=== PATIENT | female | born 1990 | race Caucasian/White ===

== ENCOUNTER 2021-04-18 20:41 | Inpatient (IN) ==
[2021-04-18] MEDS ORDERED: OXYTOCIN 30 UNITS/500 ML BAG IV PRN ×2 (21:28→21:30)
[2021-04-18] MEDS: LACTATED RINGER'S 1,000 ML IV PRN (21:46)
--- NOTE | 2021-04-18 21:47 | History & Physical Report ---
Date of Service April 18, 2021 Assessment & Plan (1) Spontaneous rupture of amniotic membranes: 30-year-old -0-1-1 at 39 weeks and 3 days of gestation presenting with spontaneous rupture of membranes, \Vital signs stable afebrile, heart rate reassuring, GBS negative, Tobacco, marijuana use during , accepts urine drug screening testing, Discussed induction of labor, cervical ripening with low-dose Pitocin versus expectant management. She desires oxytocin, Plan to admit, monitor, labs, IV fluids and oxytocin per protocol All questions were answered (2) Tobacco use during in third trimester: (3) Marijuana use: History of Present Illness Primary Care Provider: Miguelina Canales, DO A large gushIs a 30-year-old -0-1-1 at 39 weeks and 3 days of gestation who has been leaking clear amniotic fluid since 7 PM and it started as a big gush then continued as trickles. No vaginal bleeding, no contractions, no abdominal pain no cramping. Good movements. Patient denies fever, chills, chest pain, shortness of breath, headache or change in her vision, nausea or vomiting. Her has been complicated by 1) smoker, smokes 15 cigarettes/day, 2) marijuana use during , uses couple times a day, last use was yesterday, 3) polyhydramnios, 4) History of depression, anxiety Allergies Allergy/AdvReac Type Severity Reaction Status Date / Time No Known Allergies Allergy Unverified 09/08/18 00:50 Home Medications Medication Instructions Recorded Confirmed Type PNV cmb#95-ferrous fumarate-FA 1 tab PO DAILY 04/18/21 04/18/21 History [] ferrous sulfate [iron] 325 mg PO DAILY 04/18/21 04/18/21 History Patient History Medical History Adolescent depression suicide attempt at 12 Pyelonephritis Social History Smoking Status: Current every day smoker Cigarettes Per Day: 15; Second Hand Exposure: Yes; Hx Alcohol Use: No Hx Substance Use: Yes Last Used Substance: Days (ago) Last Used Substance Other:: 07/10/21 Preferred Language: Ukrainian Communication Ability: Effective Receiving 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 Beliefs That Will Affect Care: None marital status: Current Living Situation: Spouse and Family Other Information That Helps Us Care for You: No Feels Safe at Home: Yes Safety Concerns: Feels Safe At This Time Assistive Devices: None OB History Full-term in 2013 [employer] History Denies any history of STDs including chlamydia, gonorrhea, herpes Review of Systems All systems reviewed & are unremarkable except as noted in HPI & below Physical Exam Constitutional: WD/WN, vitals as above well developed and well nourished Patient is comfortable, not in acute distress Gastrointestinal (Abdomen): normal bowel sounds, soft, nontender, no hepatosplenomegaly (Gravid, Amandeep 7 to 8 pounds) Genitourinary: normal external appearance (Grossly ruptured, clear amniotic fluid noted, nitrazine positive) OB Exam Abdomen: + vertex Manual OB Exam: + cervical dilation 1 cm, + cervical effacement 10% and + station high (Ballotable head) OB Exam Monitor Tracing: + external uterine monitor used and + category I Results & Data ([facility]) Vital Signs (Past 12 Hours) Vital Signs Temp Pulse Resp BP 04/18/21 21:02 36.5 C 93 H 18 143/78 H 04/18/21 21:00 93 H 143/78 H
[2021-04-18 21:48] LABS: Hematocrit (blood only) 32.2 % (37-47); Hemoglobin 11.1 g/dL (12.0-16.0); Mean Corpuscular Hgb Conc 34.5 g/dL (32-36); Mean Corpuscular Volume 95.8 fL (80-100); Mean Platelet Volume 10.1 fL (7.4-10.4); Platelet Count 273 K/uL (130-400); RDW Coefficient of Variation 14.8 % (11.5-14.5); Red Blood Count 3.36 M/uL (4.2-5.4); White Blood Count 9.95 K/uL (4.8-10.8)
[2021-04-18 22:09] LABS: Albumin Level 2.7 gm/dl (3.4-5.0); BUN Creatinine Ratio 18.3 (10-20); Calcium 9.3 mg/dl (8.5-10.1); Creatinine Clr Calc Pharmacy 169.4 ml/min; Est GFR (African American) 146.6 ml/min; Est GFR (Non-African American) 126.5 ml/min; Potassium 3.7 mmol/L (3.5-5.1)
[2021-04-18 22:10] LABS: Amphetamines+Metham, Urine Neg (Neg); Barbiturates, Urine Neg (Neg); Benzodiazepine, Urine Neg (Neg); Cocaine, Urine Neg (Neg); MDMA (Ecstacy), Urine Neg (Neg); Methadone, Urine Neg (Neg); Opiate, Urine Neg (Neg); Phencyclidine, Urine Neg (Neg)
[2021-04-18 22:12] LABS: Albumin Globulin Ratio 0.6 (0.9-2); Bilirubin,Total 0.1 mg/dl (0.2-1); Globulin 4.2 gm/dl (2.5-4.0); Total Protein 6.9 gm/dl (6.4-8.2)
[2021-04-18] MEDS ORDERED: ePHEDrine sulfate 50 MG/ML AMP ONE (23:42)
[2021-04-18] MEDS ORDERED: fentaNYL citrate 100 MCG/2 ML VIAL ONE (23:42)
[2021-04-18] MEDS ORDERED: SODIUM CHLORIDE 0.9% INJ 10 ML VIAL ONE (23:42)
[2021-04-18] MEDS ORDERED: BUPIVACAINE 0.25% 30 ML VIAL ONE (23:42)
[2021-04-18] MEDS ORDERED: fentaNYL 2MCG/ML ROPIVACAINE 1.25MG/ML 100 ML BAG EPI ONE (23:43)
[2021-04-18] MEDS ORDERED: ONDANSETRON INJ 2 MG/ML 2 ML VIAL IV PRN (23:47)
[2021-04-18] MEDS ORDERED: fentaNYL 2MCG/ML ROPIVACAINE 1.25MG/ML 100 ML BAG EPI PRN (23:47)
[2021-04-18] MEDS ORDERED: NALOXONE HCL 1 MG in SODIUM CHLORIDE 0.9% 1000ML 1,000 ML IV PRN (23:47)
[2021-04-18] MEDS ORDERED: NALOXONE HCL 0.4 MG/1 ML VIAL/CARP IV PRN (23:47)
[2021-04-18] MEDS ORDERED: NALBUPHINE HCL INJ 10 MG/ML AMP IV PRN (23:47)
[2021-04-18] MEDS ORDERED: diphenhydrAMINE 50 MG/ML VIAL IV PRN (23:47)
[2021-04-18] MEDS ORDERED: ePHEDrine sulfate 50 MG/ML AMP IV PRN (23:47)
--- NOTE | 2021-04-18 23:49 | Anesthesiology Consultation ---
Date of Service April 18, 2021 Assessment & Plan (1) Encounter for pre-operative examination: Chart Review Chart Review: Patient NOT seen in Pre Admission Testing and Acceptable Risk for Labor Epidural Consults Requested none History Height/Weight Height: 5 ft 5 in Weight: 88.904 kg Allergies Allergy/AdvReac Type Severity Reaction Status Date / Time No Known Allergies Allergy Unverified 09/08/18 00:50 Medications Home Medications Medication Instructions Recorded Confirmed Last Taken PNV cmb#95-ferrous fumarate-FA 1 tab PO DAILY 04/18/21 04/18/21 04/18/21 [] ferrous sulfate [iron] 325 mg PO DAILY 04/18/21 04/18/21 04/17/21 Active Medications Generic Name Dose Route Start Last Admin Trade Name Freq PRN Reason Stop Dose Admin Lactated Ringer's 1,000 mls @ 150 mls/hr 04/18/21 21:28 04/18/21 21:46 Lr IV 04/20/21 21:27 150 mls/hr .[id number] PRN Administration L&D Protocol Protocol Oxytocin 30 units in 500 mls @ 1 mls/hr 04/18/21 21:30 04/18/21 22:07 Pitocin IV 04/20/21 21:29 0.06 units/hr .Q24H PRN 1 mls/hr Labor Induction/Augmentation Administration Protocol 0.06 UNITS/HR Past Medical History Medical History Adolescent depression suicide attempt at 12 Pyelonephritis Exercise / Class Metabolic Activity II 4-5 Yardwork/Stairs/Walk up hill Past Anesthesia History No Hx of Anesthesia Complications and No Family Hx of Anesthesia Complications History of PONV No Hx of PONV and No Hx of Motion Sickness Social History Smoking Status: Current every day smoker tobacco type: cigarettes Smoking cigarettes per day: 15 Hx Alcohol Use: No Hx Substance Use: Yes substance use type: marijuana Last Used Substance: Days (ago) Last Used Substance Other:: 04/17/21 Physical Exam Vital Signs Last Vital Signs Temp 36.8 C 04/18/21 23:00 Pulse 77 04/19/21 00:07 Resp 16 04/18/21 23:00 BP 127/66 04/19/21 00:07 Pulse Ox 98 04/19/21 00:05 Testing Laboratory Results 04/18/21 21:37 04/18/21 21:37
[2021-04-19] MEDS: LACTATED RINGER'S 1,000 ML IV PRN (00:15)
[2021-04-19] MEDS ORDERED: NURSING L&D Epidural Breakthrough Pain Update ONE (05:12)
--- NOTE | 2021-04-19 05:46 | Communication Note ---
Date of Service: April 19, 2021 Pt very painful per nursing. bolused 10ml of 1% lido with o.1% rop in divided doses. pt was 3cm and on recheck complete.
[2021-04-19] MEDS ORDERED: MEASLES, MUMPS & RUBELLA VIRUS VIAL SQ ONE (06:00)
[2021-04-19] MEDS ORDERED: BENZOCAINE 20% AER SPR 82.5 GM CAN EXT PRN (06:00)
[2021-04-19] MEDS ORDERED: ACETAMINOPHEN 325 MG TAB PO PRN (06:00)
[2021-04-19] MEDS ORDERED: HYDROCORTISONE ACETATE 25 MG SUPP PR PRN (06:00)
[2021-04-19] MEDS ORDERED: OXYTOCIN 30 UNITS/500 ML BAG IV PRN (06:00)
[2021-04-19] MEDS ORDERED: DIPHTHERIA/TETANUS/PERTUSSIS 0.5 ML SYR/VIAL IM ONE (06:00)
[2021-04-19] MEDS ORDERED: SUPERCREAM 0.870% 15 GM JAR EXT PRN (06:00)
[2021-04-19] MEDS ORDERED: bisacodyL 10 MG SUPP PR PRN (06:00)
[2021-04-19] MEDS: IBUPROFEN 600 MG TAB PO PRN ×3 (06:32→20:54)
[2021-04-19] MEDS: DOCUSATE SODIUM 100 MG CAP PO SCH ×2 (10:02→20:54)
[2021-04-19] MEDS: PRENATAL VITAMIN 1 TAB PO SCH (10:02)
[2021-04-19] MEDS: FERROUS SULFATE 325 MG TAB PO SCH (10:03)
--- NOTE | 2021-04-19 11:51 | Anesthesia Procedure Note ---
Date of Service April 19, 2021 Anesthesia Post Epidural Note Vital Signs Vital Signs: Temp Pulse Resp BP Pulse Ox 36.7 C 66 18 111/63 96 04/19/21 09:00 04/19/21 09:00 04/19/21 09:00 04/19/21 09:00 04/19/21 09:00 Pain Intensity Abdomen: Pain Intensity: 2 Notes Mental Status: alert / awake / arousable Nausea / Vomiting: adequately controlled Pain: adequately controlled Airway Patency, RR, SpO2: stable & adequate BP & HR: stable & adequate Hydration State: stable & adequate Neuraxial Anesthesia: was administered and sensory block is resolving Anesthetic Complications: no major complications apparent and Pt Satisfied with anesthetic care Epidural: Removed without complications and With tip intact
--- NOTE | 2021-04-19 12:18 | Delivery Summary ---
DATE OF DELIVERY: 04/19/2021 TIME: 05:40 a.m. DETAILS OF DELIVERY: Patient was found to be fully dilated and desired to push. She pushed through one contraction, delivered the head and shoulders right after without difficulty. Baby was handed off to the mother. Baby was handed off to the mother where mouth and nose were suctioned. Baby was vigorously moving and crying. Cord was clamped x2 and cut at 1 minute delay. Cord blood was obtained. Vagina and perineum were checked for lacerations. Those was intact. No lacerations were found. Placenta was found to be in the vagina, delivered spontaneously as intact and complete. Uterus was explored and found to be empty. Fundus was firm. Lower segment was cleared of all clots and debris. The EBL was 100 mL. Mom and baby tolerated the procedure well. Sponge and instrument count was correct x2. Baby was a viable male infant, Apgars 8/9. No complications happened and I was present during whole procedure. Job ID: [id number] MTDD
[2021-04-20 06:12] LABS: Hematocrit (blood only) 32.2 % (37-47); Hemoglobin 10.8 g/dL (12.0-16.0); Mean Corpuscular Hemoglobin 32.4 pg (25-34); Mean Corpuscular Hgb Conc 33.5 g/dL (32-36); Mean Corpuscular Volume 96.7 fL (80-100); Mean Platelet Volume 10.1 fL (7.4-10.4); Platelet Count 253 K/uL (130-400); RDW Standard Deviation 53.2 fL (36.4-46.3); Red Blood Count 3.33 M/uL (4.2-5.4); White Blood Count 10.31 K/uL (4.8-10.8)
[2021-04-20] MEDS: DOCUSATE SODIUM 100 MG CAP PO SCH (08:59)
[2021-04-20] MEDS: FERROUS SULFATE 325 MG TAB PO SCH (08:59)
[2021-04-20] MEDS: PRENATAL VITAMIN 1 TAB PO SCH (08:59)
--- NOTE | 2021-04-20 09:39 | Obstetrical Progress Note ---
Date of Service April 20, 2021 Subjective Ambulation: ambulating normally Voiding: no voiding problems Passing Gas:: Yes Diet Tolerance:: regular diet Lochia:: Small Feeding Type:: breast feeding abdomen soft and non-tender fundus firm no edema neg Na's for d/c today Results & Data ([facility]) Vital Signs (Past 12 Hours) Vital Signs Temp Pulse Resp BP Pulse Ox 04/20/21 07:20 36.7 C 64 18 136/84 95 04/20/21 04:00 36.7 C 60 14 124/79 04/19/21 23:45 36.9 C 67 18 134/77 Laboratory Results 04/18/21 04/18/21 04/18/21 21:20 21:30 21:30 WBC RBC Hgb Hct MCV MCH MCHC RDW Std Deviation RDW Coeff of Juan Francisco Plt Count MPV Sodium Potassium Chloride Carbon Dioxide Anion Gap BUN Creatinine Est Cr Clr Drug Dosing Est GFR ( Amer) Est GFR (Non-Af Amer) BUN/Creatinine Ratio Glucose Calcium Total Bilirubin AST ALT Alkaline Phosphatase Total Protein Albumin Globulin Albumin/Globulin Ratio Urine Opiates Screen Neg Ur Methadone, Qual Neg Urine Barbiturates Neg Ur Phencyclidine (PCP) Neg U Amphetamin/Meth Scrn Neg MDMA (Ecstasy) Screen Neg U Benzodiazepines Scrn Neg Ur Cocaine Metabolite Neg U Marijuana (THC) Screen Pos H COVID-19 Eval [facility] [place] SARS-CoV-2, RNA, NAAT NEGATIVE 04/18/21 04/18/21 04/20/21 21:37 21:37 05:57 WBC 9.95 10.31 RBC 3.36 L 3.33 L Hgb 11.1 L 10.8 L Hct 32.2 L 32.2 L MCV 95.8 96.7 MCH 33.0 32.4 MCHC 34.5 33.5 RDW Std Deviation 52.0 H 53.2 H RDW Coeff of Juan Francisco 14.8 H 15.0 H Plt Count 273 253 MPV 10.1 10.1 Sodium 139 Potassium 3.7 Chloride 108 H Carbon Dioxide 22 Anion Gap 9.0 BUN 10 Creatinine 0.53 L Est Cr Clr Drug Dosing 169.4 Est GFR ( Amer) 146.6 Est GFR (Non-Af Amer) 126.5 BUN/Creatinine Ratio 18.3 Glucose 88 Calcium 9.3 Total Bilirubin 0.1 L AST 14 L ALT 14 Alkaline Phosphatase 160 H Total Protein 6.9 Albumin 2.7 L Globulin 4.2 H Albumin/Globulin Ratio 0.6 L Urine Opiates Screen Ur Methadone, Qual Urine Barbiturates Ur Phencyclidine (PCP) U Amphetamin/Meth Scrn MDMA (Ecstasy) Screen U Benzodiazepines Scrn Ur Cocaine Metabolite U Marijuana (THC) Screen COVID-19 Eval Order SARS-CoV-2, RNA, NAAT
[2021-04-20] MEDS: IBUPROFEN 600 MG TAB PO PRN (10:21)
[2021-04-20] MEDS ORDERED: bisacodyL 5 MG TABEC PO SCH (20:00)
[2021-04-21 08:41] LABS: Marijuana Quant, GCMS Urine 256 ng/mL (<5)
== END 2021-04-20 12:22 | disposition home or self-care (01) | DRG 806 ==
LOC: OPB 20:41 → 4S1 20:43 → 4S2 04-19 09:14